=== PATIENT | female | born 1995 | race Caucasian/White ===

== ENCOUNTER 2017-11-12 11:53 | Emergency (ER) | payer SELFPAY ==
[2017-11-12 11:53] VITALS: BMI 42.3
[2017-11-12 12:02] VITALS: RESP 18
--- NOTE | 2017-11-12 12:46 | C.PDOC ---
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
--- NOTE | 2017-11-12 14:43 | C.PDOC ---
History Of Present Illness 22 y/o female presents to ED with complaints of pimples to genital area x few days and x1 month of left hip and leg pain. Patient reports she has appointment with OBGYN early next week. Patient states she popped pimples and now skin painful. denies abdominal pain, vaginal bleeding, dysuria, fever, chills, fall, or any other complaints at this time. Patient's LMP is 05/2017 and has not had Pre tessa care. Time Seen by Provider: 11/12/17 12:45 Chief Complaint (Nursing): Lower Extremity Problem/Injury History Per: Patient History/Exam Limitations: no limitations Onset/Duration Of Symptoms: Days Current Symptoms Are (Timing): Still Present Past Medical History Reviewed: Historical Data, Nursing Documentation, Vital Signs Vital Signs: Last Vital Signs Temp 97.8 F 11/12/17 15:33 Pulse 87 11/12/17 15:33 Resp 18 11/12/17 15:33 BP 118/69 11/12/17 15:33 Pulse Ox 98 11/13/17 22:25 - Medical History PMH: Asthma Surgical History: No Surg Hx - [facility] Procedures EXTRACTION OF POC, LOW CERVICAL, OPEN APPROACH (04/21/16) LOW CERVICAL (10/16/14) 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 Negative for: Dysuria, Hematuria, Vaginal Discharge, Vaginal Bleeding Musculoskeletal: Positive for: Leg Pain (left) Skin: Positive for: Lesions (genital area) Neurological: Negative for: Weakness, Numbness Physical Exam - Physical Exam Appears: Non-toxic, No Acute Distress, Other (Overweight) Skin: Warm, Dry, No Rash, Other (3 areas of ulcerated skin with irregular borders approximately 0.5 cm roundish each, on right posterior thigh near buttocks, 2 on left labia majora. no surrounding erythema or warmth. ) Head: Atraumatic, Normacephalic Eye(s): bilateral: Normal Inspection Oral Mucosa: Moist Neck: Normal ROM, No Midline Cervical Tenderness, Supple Cardiovascular: Rhythm Regular Respiratory: Normal Breath Sounds, No Rales, No Rhonchi, No Wheezing Gastrointestinal/Abdominal: Bowel Sounds, Soft, No Tenderness, No Guarding, No Rebound, Other (gravid) Back: No CVA Tenderness, No Vertebral Tenderness Pelvic: Other ((2) .5cm irregular ulcerated area on left external labia ) Extremity: Normal ROM, Tenderness (left hip), No Pedal Edema, No Calf Tenderness , Capillary Refill (<2 seconds), No Deformity, Other (decreased sensation to left proximal medial calf) Extremity: Right: Hips Non-Tender, Bilateral: Atraumatic, Normal ROM Pulses: Left Dorsalis Pedis: Normal, Right Dorsalis Pedis: Normal Neurological/Psych: Oriented x3, Normal Speech, Normal Cognition, Normal Motor, No Normal Sensation (slight decreased sensation left medial upper calf, otherwise normal ) Gait: Steady ED Course And Treatment O2 Sat by Pulse Oximetry: 98 (RA) Pulse Ox Interpretation: Normal Medical Decision Making Medical Decision Making: Plan: Macrobid administered. pt with +iup with fhr, 24 w gestation on us. 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 pt with borderline uti, will d/c with rx for macrobid. pt with hip and left leg pain with slight dec sensation ; likely from pinched nerve in back; f/u med clinic, [facility]us for pain. Disposition Counseled Patient/Family Regarding: Studies Performed, Diagnosis, Need For Followup, Rx Given - Disposition Referrals: [facility] [Outside] Disposition: HOME/ ROUTINE Disposition Time: 15:26 Condition: GOOD Additional Instructions: Monica follow with your manager web application on /Wed as already scheduled. Take antibiotics as prescribed. Tylenol for pain. Follow up in medical clinic for back pain. Prescriptions: Acetaminophen [Tylenol 325mg tab] 650 mg PO Q6 #30 tab Nitrofurantoin Macrocrystals [Macrobid] 100 mg PO BID #14 cap Instructions: Urinary Tract Infections in Adults, - The Fifth Month Forms: [facility] (Spanish), General Discharge Instructions - Clinical Impression Clinical Impression: related conditions, unspecified, second trimester, Hip pain, left, UTI (urinary tract infection) - PA / [employer] / Resident Statement MD/DO has reviewed & agrees with the documentation as recorded. - Scribe Statement The provider has reviewed the documentation as recorded by the Scribe Nita Monae All medical record entries made by the Ernestineibdequan were at my direction and personally dictated by me. I have reviewed the chart and agree that the record accurately reflects my personal performance of the history, physical exam, medical decision making, and the department course for this patient. I have also personally directed, reviewed, and agree with the discharge instructions and disposition.
[2017-11-12 14:53] LABS: SQUAMOUS EPITHIAL 3 /hpf (0-5); URINE BACTERIA RARE (<OCC); URINE BILIRUBIN NEGATIVE (NEGATIVE); URINE BLOOD NEGATIVE (NEGATIVE); URINE CLARITY Hazy (Clear); URINE COLOR Yellow (YELLOW); URINE GLUCOSE (UA) NORMAL (Normal); URINE LEUKOCYTE ESTERASE 1+ Leu/uL (Negative); URINE PROTEIN 1+ mg/dL (NEGATIVE)
--- NOTE | 2017-11-12 15:00 | US ---
PROCEDURE: Second trimester ultrasound HISTORY: no care, lmp jun 11 COMPARISON: None available. TECHNIQUE: Standard protocol for this study/examination. FINDINGS: Cephalic presentation. Interior Placenta. No evidence of abruption or previa Gestational age derived from LMP21 weeks 4 days. MEGAN 03/21/2018. Gestational age derived from the following biometric [id number] weeks 2 days. MEGAN 03/02/2018 Biparietal diameter 5.8 cm Head [id number] cm Abdominal circumference 19.6 cm Femur length 4.5 cm Estimated weight 639.7 g Calculated cardiac rate 1638 beats per min. Closed cervix measuring 3.09 cm IMPRESSION: Twenty-four weeks 2 days live intrauterine gestation.
[2017-11-12 15:33] VITALS: BP 118/69; PULSE 87; TEMP 97.8
[2017-11-13 21:49] VITALS: O2SAT 98
== END 2017-11-12 15:42 | disposition home or self-care (01) ==
LOC: C.ER 11:53
DX: O23.42 Unspecified infection of urinary tract in pregnancy, second trimester (principal); Z3A.24 24 weeks gestation of pregnancy; M25.552 Pain in left hip